=== PATIENT | male | born 1945 | race Caucasian/White ===

== ENCOUNTER 2016-12-15 11:13 | Inpatient (IN) | payer MEDICARE, MEDICAID ==
--- NOTE | 2016-12-15 11:54 | RAD ---
SINGLE VIEW OF THE CHEST: COMPARISON: 04/07/2015 HISTORY: Right lower quadrant abdominal pain. FINDINGS: Single view of the chest shows a normal size cardiomediastinal silhouette with atherosclerotic calci fications in the aorta. There is no evidence of consolidation, mass, or pleural effusion. IMPRESSION: No evidence of acute cardiopulmonary disease. POS: [facility]
[2016-12-15 11:55] LABS: #Eosinphils 0.1 thou/uL (0.0-0.7); #Lymphocytes 0.3 thou/uL (1.20-3.40); %Basophils 0.2 % (0.0-1.0); %Eosinophils 1.4 % (0.0-10.0); %Lymphocytes 4.8 % (21.0-51.0); %Monocytes 0.6 % (0.0-10.0); Hematocrit 34.1 % (42.0-52.0); Mean Platelet Volume 8.2 fL (7.4-10.4); White Blood Cell (WBC) Count 6.5 thou/uL (4.8-10.8)
[2016-12-15] MEDS ORDERED: Acetaminophen 500 MG TAB ONE (12:05)
[2016-12-15 12:18] LABS: ALT (SGPT) 139 U/L (8-55); AST (SGOT) 145 U/L (5-34); Alkaline Phosphatase 380 U/L (40-150); Anion Gap 15 mmol/L (10-20); BUN (Urea Nitrogen) 29 mg/dL (8.4-25.7); Bilirubin, Total 0.8 mg/dL (0.2-1.2); Calc. Creatinine Clearance 0 mL/min (70-130); Calcium 8.1 mg/dL (7.8-10.44); Carbon Dioxide 22 mmol/L (23-31); Chloride 106 mmol/L (98-107); Estimated GFR-MDRD 30; Globulin 3.4 g/dL (2.4-3.5); Protein, Total 6.2 g/dL (5.8-8.1)
[2016-12-15 12:18] LABS: Lactic Acid - Sepsis 5.6 mmol/L (0.5-2.2)
--- NOTE | 2016-12-15 13:18 | ULT ---
RIGHT UPPER QUADRANT ULTRASOUND 12/15/2016 HISTORY: Right-sided abdominal pain and fever. FINDINGS: There is heterogeneity involving a portion of the right hepatic lobe. While discrete border pulmona ry margins are not seen to suggest mass, further evaluation with CT scan of the abdomen is recommend ed. There is mild gallbladder wall thickening with the gallbladder wall measuring 0.4 cm. No gallbladde r calculi are seen, and there is no pericholecystic fluid identified. The common duct is normal in caliber and measures 0.4 cm. The pancreas is obscured by shadowing from bowel gas. The right kidney measures 12.8 cm in length. There is a near-echogenic focus seen centrally within the renal sinus fat which may be attributable to vascular calcification which was noted on CT abdome n on 07/15/2015, although a renal calculus cannot be entirely excluded. There is no hydronephrosis s een and the right kidney otherwise has a normal sonographic appearance. IMPRESSION: 1. Area of heterogeneity in the right hepatic lobe. Further evaluation with a CT scan of abdomen is recommended with 3-phase imaging. 2. Mild gallbladder wall thickening, but there is no gallbladder calculus or pericholecystic fluid i dentified. This is overall nonspecific, and gallbladder wall thickening can be seen with cholecysti tis in the correct clinical scenario, liver disease, hypoproteinemia, versus other etiologies. 3. Trace amount of free fluid adjacent to the liver. 4. Echogenic focus in the region of the renal sinus fat which is probably related to vascular calcif ication which was seen on prior CT abdomen on 07/15/2015. POS: [facility]
[2016-12-15] MEDS ORDERED: Piperacillin/Tazobactam 4.5 GM VIAL ONE (13:57)
[2016-12-15] MEDS ORDERED: Sodium Chloride 0.9% 100 ML ONE (13:58)
[2016-12-15 14:55] LABS: Bilirubin Negative (Negative); Blood, Urine Moderate (Negative); Glucose, Urine (Dipstick) Negative (Negative); Ketone, Urine Negative (Negative); Nitrite Positive (Negative); Protein, Urine (Dipstick) 30 mg/dL (Neg-Trace); Urobilinogen 0.2 mg/dL (0.2-1.0)
[2016-12-15 15:06] LABS: Bacteria/HPF 3+ HPF (None Seen); Squamous Epithelial 0-3 HPF (0-3)
[2016-12-15 15:07] LABS: Hyaline Casts/LPF 0-3 HYALINE CAST LPF (0-3 Hyaline)
--- NOTE | 2016-12-15 15:53 | HP ---
PRIMARY CARE PHYSICIAN: Myriam Walker D.O. REASON FOR ADMISSION: Sent from [facility] for right-sided abdominal pain, fever, an d admitted for sepsis. HISTORY OF PRESENT ILLNESS: A 71-year-old male who is currently appears confused. He is arousable, but he is not able to provide any coherent and consistent history. He only reports that he has rig ht-sided abdominal pain. He is also having back pain. In the emergency room, he has fever of 101 a nd he is tachycardic and his blood pressure is relatively low. His routine blood tests showed abnor mal LFT, lactic acidosis, and mild renal insufficiency. In the emergency room, the abdominal ultrasound was done, which showed gallbladder wall thickening w ithout any gallstones. His chest x-ray was unremarkable. By the time of dictation, we are waiting for urinalysis. As per report from intermediate, abdominal pain is going on since this morning. He was given Tyleno l at intermediate around 9:00 a.m. He was hypertensive at intermediate and his last bowel movement was last night. At this point, we are admitting this patient for sepsis. REVIEW OF SYSTEMS: All review of systems tried to review with the patient, but unable to review bec ause of altered mental status. The patient has underlying dementia and that is why review of system s is not reliable, only patient is telling me that he has right-sided abdominal pain and back pain. PAST MEDICAL HISTORY: Alzheimer's dementia, hypertension, coronary artery disease, diabetes type 2, hypertension, dyslipidemia, peripheral vascular disease, osteoarthritis, carotid stenosis, benign e nlargement of prostate, gastroesophageal reflux disease, chronic kidney disease stage 3, history of Buerger's disease, recurrent urinary tract infection. PAST SURGICAL HISTORY: Cardiac catheterization with stent placement, CABG, carotid endarterectomy. PAST PSYCHIATRIC HISTORY: Anxiety, depression, and dementia. ALLERGIES: No known drug allergies. SOCIAL HISTORY: Patient is . He lives in [facility] in [place]. He does not have a ny tobacco, alcohol or illicit drug abuse history. FAMILY HISTORY: Father by age of 52 from coronary artery disease. Mother in her old age. He has no brothers and sisters as per report. CURRENT HOME MEDICATIONS: Patient has intermediate paper with him and based on that, patient is on following medication: Aricept 710 mg p.o. at bedtime, aspirin 325 mg p.o. daily, Claritin 10 mg p.o . daily, clonidine 0.2 mg transdermal patch every week, ferrous sulfate 325 mg twice daily, Flomax 0 .4 mg p.o. daily, hydralazine 25 mg twice daily, multivitamin 1 tablet p.o. daily, Namenda XR 14 mg p.o. daily, Imodium p.r.n., milk of magnesia p.r.n. basis and Zoloft 50 mg p.o. daily. EMERGENCY ROOM COURSE: Patient is receiving IV fluid, vancomycin, Zosyn and Tylenol. PHYSICAL EXAMINATION: VITAL SIGNS: Currently, blood pressure 110/52, pulse 102, respiratory rate 22, temperature 101.0, s aturation 100% on room air, weight 59 kilograms. GENERAL: The patient is currently awake, arousable, and confused up to his baseline. HEENT: Normocephalic, atraumatic. Eyes: Pupils round, reactive to light. Extraocular muscles int act. ENT: Nasal congestion noted. Oropharynx within normal limits. Moist mucous membranes. No pharyng eal erythema. No exudate. NECK: Supple. No JVD. No thyromegaly. No carotid bruit. No meningeal signs of irritation. LUNGS: Clear to auscultation without any rhonchi or rales. CARDIAC: S1, S2 regular, tachycardia, no murmur elicited, no gallop, no rub. ABDOMEN: Patient has right-sided predominantly upper abdominal discomfort on deep palpation. No Mu rphy sign elicited. Right-sided flank discomfort also noted. No peritoneal signs. No guarding. N o rigidity. No rebound. BACK EXAMINATION: Unremarkable. Unable to elicit CVA tenderness. EXTREMITIES: Upper extremity passive movement of all joints are normal. Lower extremities: No feliberto ma. Good peripheral pulsation. SKIN: No skin rash. HEMATOLOGICAL: No lymphadenopathy. PSYCHIATRIC: Flat affect. NEUROLOGIC: Grossly nonfocal examination. Speech normal. The patient is moving all four limbs. N o focal neurological deficit noted. SIGNIFICANT LABS AND IMAGINGS: Ultrasound right upper quadrant showing right hepatic lobe heterogen icity, gallbladder wall thickening without any gallstone. Chest x-ray based on my review, no acute cardiopulmonary process. Influenza A and B negative. BMP shows sodium 139, potassium 4.4, chloride 106, carbon dioxide 22, anion gap 15, BUN 29, creatinine 2.15, glucose 108, calcium 8.1. LFTs: To kvng protein 6.2, albumin 2.8, AST 145, ALT 139, alkaline phosphatase 380, lactic acid 5.6. CBC: WB C 6.5, hemoglobin 11.2, platelets 187 with left shift. Urinalysis and urine culture ordered. Blood culture done. ASSESSMENT AND PLAN: 1. Sepsis severe with acute organ dysfunction with encephalopathy and worsening renal insufficiency and abnormal LFT. Source of infection is most likely urinary tract versus gallbladder. He has abn ormal LFT. He has gallbladder wall thickening and abdominal discomfort in the right upper quadrant. He does not have any gallstones, so acalculous cholecystitis is a possibility. We will check urin alysis and urine culture and we will do CT stone protocol to rule out any urinary process. At this point, the patient will be given broad-spectrum antibiotic therapy with vancomycin and Zosyn. We wi ll continue with gentle IV fluid and we will follow up on culture result and change antibiotic thera py based on culture result. 2. Acute acalculous cholecystitis based on clinical examination. We are suspecting acalculous chol ecystitis. We will confirm this possibility with HIDA scan if needed. We will repeat LFT tomorrow. At this point, we will conservatively treat with broad-spectrum antibiotic therapy. 3. Urinary tract infection suspected. We will send urinalysis and urine culture. The patient is a lready on broad spectrum antibiotic therapy and we are doing CT stone protocol to rule out any other process. 4. Lactic acidosis, likely due to sepsis. We will repeat lactic acid tomorrow again. 5. Encephalopathy. The patient is away from normal baseline status likely due to underlying infect ious process and mild dehydration. We will give him gentle IV fluid. We will treat with an underly ing infection. He does not have any focal neurological deficit. We will monitor his clinical statu s. 6. Alzheimer's dementia. We will continue patient's home medication with Namenda XR 40 mg, and Pancho cept 10 mg p.o. at bedtime. 7. Hypertension. We will watch for his hemodynamics while in hospital. If blood pressure is low, then we will discontinue clonidine patch and will hold on antihypertensive medication. If blood pre ssure permits, then we will resume hydralazine 25 mg twice daily. 8. Benign enlargement of prostate. We will continue Flomax 0.4 mg p.o. daily. 9. Anxiety and depression. We will continue Zoloft 50 mg p.o. daily. 10. History of coronary artery disease, peripheral vascular disease, carotid stenosis, and a histor y of systolic dysfunction. All problems are currently stable. We will continue aspirin 325 mg p.o. daily. We will watch for any fluid overload. 11. Deep venous thrombosis prophylaxis, heparin 5000 units subcu twice daily. 12. Gastrointestinal prophylaxis, Protonix 40 mg IV daily. 13. Code status: The patient has out of hospital DNR paper work at intermediate. We will continue DNR status while in hospital. Disposition plan based on clinical course. We are expecting patient's stay in hospital more than 2 midnights. Plan of care discussed with the patient.
[2016-12-15 16:09] LABS: Anion Gap 13 mmol/L (-14-95); T. Carbon Dioxide 22.6 mmol/L (1.0-85.0); pH (Venous) 7.347 (7.35-7.45); vO2 Saturation-calc 48.8 % (0.0-100.0)
[2016-12-15] MEDS ORDERED: hydrALAZINE 20 MG/ML VIAL SLOW IVP PRN (16:56)
[2016-12-15] MEDS ORDERED: Mag-Al 1200 mg/1200 mg/30 ML UDCUP PO PRN (16:56)
[2016-12-15] MEDS ORDERED: Ondansetron HCl/PF 4 MG/2 ML Vial IVP PRN (16:56)
[2016-12-15] MEDS ORDERED: Loratadine 10 MG TAB PO PRN (16:56)
[2016-12-15] MEDS ORDERED: Sodium Chloride 0.65% Nasal 44 ML BOT EA NARE PRN (16:56)
[2016-12-15] MEDS ORDERED: Artificial Tears 18 DROP/0.9 ML EA EYE PRN (16:56)
[2016-12-15] MEDS ORDERED: Nitroglycerin 0.4 MG TAB (25 Tab Bottle) SL PRN (16:56)
[2016-12-15] MEDS ORDERED: Acetaminophen 325 MG TAB PO PRN (16:56)
[2016-12-15] MEDS ORDERED: Diabetic Tussin 200 MG/10 ML UDCUP PO PRN (16:56)
[2016-12-15] MEDS ORDERED: HumaLOG 300 UNITS/3 ML VIAL SC PRN ×2 (16:56)
[2016-12-15] MEDS ORDERED: Eucerin (Mineral Oil/Petrolatum,White) 30 gm Jar TOP PRN (16:56)
[2016-12-15] MEDS ORDERED: HYDROcodone/Acetaminophen 5/325 mg Tablet PO PRN (16:56)
[2016-12-15] MEDS ORDERED: Senokot 8.6 MG TAB PO PRN (16:56)
[2016-12-15] MEDS ORDERED: Loperamide HCl 2 MG CAP PO PRN (16:56)
[2016-12-15] MEDS ORDERED: Milk Of Magnesia 30 ML UDCUP PO PRN (16:56)
[2016-12-15] MEDS ORDERED: Ondansetron ODT 4 MG TAB PO PRN (16:56)
[2016-12-15] MEDS ORDERED: Dextrose 5% in Water 1,000 ML IV PRN (16:56)
[2016-12-15] MEDS ORDERED: Dextrose 50% Abboject 50 ML SYRINGE SLOW IVP PRN (16:56)
[2016-12-15] MEDS: Sodium Chloride 0.9% 1,000 ML IV SCH (17:32)
[2016-12-15] MEDS: Piperacillin/Tazobactam 3.375 GM in Sodium Chloride 0.9% 100 ML IVPB SCH (20:00)
[2016-12-15] MEDS: Heparin 5,000 UNITS/ML VIAL SC SCH (20:00)
[2016-12-15] MEDS ORDERED: Donepezil HCl 10 MG TAB PO SCH (21:00)
--- NOTE | 2016-12-15 22:37 | CT ---
CT ABDOMEN NONCONTRAST CT PELVIS NONCONTRAST: (urolithiasis protocol) DATE: 12/15/16 TIME: 9:48 p.m. HISTORY: 71-year-old male with sepsis. Suspected UTI. Low GFR: renal failure. COMPARISON: 07/15/15. TECHNIQUE: IV injection of iodinated contrast media: none Oral contrast media: none FINDINGS: Other than for urolithiasis, the lack of IV and oral contrast limits the evaluation. There is a new finding of tiny bilateral pleural effusions. There is interval worsening of the diffu se mural thickening of the distal esophagus. There is another new findings of a very large number of hypodense lesions throughout the left and right lobes of the liver, No splenomegaly. Again noted is the very small size of the left kidney. The right kidney is more normal in size. The right renal co llecting system is now mildly dilated, a new finding since the previous CT. There is also mild dilat ion of the right proximal ureter, down to the L4 level, where there is a new 5 x 3 x 6 mm calculus. No right renal calculi are visualized. There are atherosclerotic calcifications of branches of the r ight renal artery. There is very severe atherosclerotic calcification of the proximal portion of the right renal artery, superior mesenteric artery, celiac artery, splenic artery, and hepatic artery, a well as the nonaneurysmal abdominal aorta, common iliac arteries, external iliac arteries, and int ernal iliac arteries. No splenomegaly. Atrophic pancreas. John catheter within the urinary bladder. Diffuse, moderate mural thickening of the urinary bladder, and numerous tiny bladder diverticula. S tool distending the rectum as previously. Mild mural thickening of the rectum. No signs of acute col onic diverticulitis. New finding of fat stranding representing edema throughout the right retroperitoneum, especially in the right perirenal space, tracking down the right paracolic gutter into the right pelvic inlet. Thi s is presumably arising from the right kidney. The appendix is normal. No small bowel dilation. No p neumoperitoneum. There is another new finding of mild dilation of the left extrarenal pelvis, new si nce the previous CT. The distal-most portion of the left ureter is mildly enlarged, as was the case previously. IMPRESSION: 1. Positive for right obstructive uropathy: a 5 x 6 x 3 mm calculus lodged in the right proxima l to mid ureter, causing mild right hydronephrosis. 2. Moderate amount of edema throughout the right retroperitoneum. This is presumably due to the right obstructive uropathy. 3. A large number of lesions throughout the liver, highly suspicious for hepatic metastatic dis ease. 4. Interval worsening of mural thickening of the distal esophagus. This could represent esophag eal cancer or severe esophagitis. 5. Atrophic or hypoplastic left kidney. 6. Mild left hydronephrosis, 7. severe mural thickening of the urinary bladder. KATERIN Robb POS: [facility]
[2016-12-16] MEDS: Piperacillin/Tazobactam 3.375 GM in Sodium Chloride 0.9% 100 ML IVPB SCH ×2 (03:00→08:20)
[2016-12-16 06:08] LABS: ALT (SGPT) 403 U/L (8-55); AST (SGOT) 672 U/L (5-34); Alkaline Phosphatase 228 U/L (40-150); Anion Gap 13 mmol/L (10-20); BUN (Urea Nitrogen) 35 mg/dL (8.4-25.7); Bilirubin, Total 1.4 mg/dL (0.2-1.2); Calc. Creatinine Clearance 19 mL/min (70-130); Calcium 6.9 mg/dL (7.8-10.44); Carbon Dioxide 17 mmol/L (23-31); Chloride 113 mmol/L (98-107); Estimated GFR-MDRD 21; Globulin 2.4 g/dL (2.4-3.5); Protein, Total 4.3 g/dL (5.8-8.1)
[2016-12-16 06:11] LABS: Band 14 % (5-11); Hematocrit 26.6 % (42.0-52.0); Mean Platelet Volume 8.9 fL (7.4-10.4); Neutrophil 77 % (42-75); Red Blood Cell (RBC) Count 2.78 mill/uL (4.70-6.10); White Blood Cell (WBC) Count 15.2 thou/uL (4.8-10.8)
[2016-12-16 07:26] LABS: Hematocrit 27.3 % (42.0-52.0); Mean Platelet Volume 8.7 fL (7.4-10.4); Red Blood Cell (RBC) Count 2.87 mill/uL (4.70-6.10); White Blood Cell (WBC) Count 17.4 thou/uL (4.8-10.8)
[2016-12-16 07:44] LABS: Anion Gap 14 mmol/L (10-20); BUN (Urea Nitrogen) 37 mg/dL (8.4-25.7); Calc. Creatinine Clearance 18 mL/min (70-130); Calcium 7.1 mg/dL (7.8-10.44); Carbon Dioxide 18 mmol/L (23-31); Chloride 112 mmol/L (98-107); Estimated GFR-MDRD 21
[2016-12-16 07:56] LABS: Band 15 % (5-11); Metamyelocyte 5 % (0-0); Myelocyte 1 % (0-0); Neutrophil 74 % (42-75); Nucleated RBC 1 % (0)
[2016-12-16] MEDS ORDERED: Sodium Chloride 0.9% 1,000 ML IV SCH (08:00)
[2016-12-16] MEDS: Ferrous Sulfate 325 MG TAB PO SCH (08:18)
[2016-12-16] MEDS: Multivitamin W/ Minerals 1 TAB PO SCH (08:20)
[2016-12-16] MEDS: Tamsulosin HCl 0.4 MG CAP PO SCH (08:20)
[2016-12-16] MEDS: Saccharomyces boulardii 250 MG CAP PO SCH (08:20)
[2016-12-16] MEDS: Heparin 5,000 UNITS/ML VIAL SC SCH ×2 (08:20→19:59)
[2016-12-16] MEDS: Sodium Chloride 0.9% 1,000 ML IV SCH (08:22)
[2016-12-16] MEDS ORDERED: Dextrose 50% Abboject 50 ML SYRINGE ONE (09:38)
[2016-12-16] MEDS ORDERED: Fentanyl 100 MCG/2 ML VIAL ONE (10:25)
[2016-12-16] MEDS ORDERED: Ondansetron HCl/PF 4 MG/2 ML Vial ONE (10:41)
[2016-12-16] MEDS ORDERED: Lidocaine 2% PF 10 ML AMP (For Epidural Use) ONE (10:41)
[2016-12-16] MEDS ORDERED: PHENYLEPHRINE-NS 100 MCG/ML 10 ML SYRINGE ONE (10:41)
[2016-12-16] MEDS ORDERED: Propofol 1,000 MG/100 ML VIAL IV ONE (10:41)
[2016-12-16] MEDS ORDERED: ePHEDrine/0.9% NaCl/PF SYRINGE 50 mg/10 ml ONE (10:41)
--- NOTE | 2016-12-16 11:54 | PDOC.PN ---
- Subjective Encounter Start Date: 12/16/16 Encounter Start Time: 07:00 Subjective: is awake, knows he is in the hospital, doesn't recall where he normally rosa -: -es, no sob, has ruq pain. Feels sick - Objective Resuscitation Status: Resuscitation Status DNR:Do Not Resuscitate MAR Reviewed: Yes Vital Signs & Weight: Vital Signs (12 hours) Temp Pulse Resp BP Pulse Ox 12/16/16 08:00 98.1 F 69 16 99 12/16/16 07:12 98.1 F 69 16 102/52 L 99 12/16/16 04:00 98.6 F 70 16 96/44 L 98 12/16/16 00:00 99.1 F 75 20 97/60 96 Weight Weight 130 lb 1.164 oz I&O: 12/15/16 12/16/16 12/17/16 06:59 06:59 06:59 Intake Total 1140 Output Total 350 Balance 790 Result Diagrams: 12/16/16 06:51 12/16/16 06:51 Additional Labs: Accuchecks 12/16/16 12/16/16 12/16/16 11:30 10:24 09:31 POC Glucose 116 H 99 67 L 12/16/16 12/16/16 12/15/16 05:11 00:25 20:37 POC Glucose 88 95 135 H 12/15/16 19:51 POC Glucose 57 L* Phys Exam - Physical Examination HEENT: PERRLA dry mucosa Neck: no JVD, supple Respiratory: no wheezing, no rales Cardiovascular: RRR, no significant murmur Gastrointestinal: soft, positive bowel sounds ruq tenderness++, no rigidity or guarding Musculoskeletal: no edema, pulses present Neurological: non-focal, moves all 4 limbs Dx/Plan (1) Severe sepsis with acute organ dysfunction Code(s): A41.9 - SEPSIS, UNSPECIFIED ORGANISM; R65.20 - SEVERE SEPSIS WITHOUT SEPTIC SHOCK Status: Acute (2) Pyelonephritis Code(s): N12 - TUBULO-INTERSTITIAL NEPHRITIS, NOT SPCF ACUTE OR CHRONIC Status: Acute (3) Hydronephrosis, right Code(s): N13.30 - UNSPECIFIED HYDRONEPHROSIS Status: Acute Comment: sec to ureteric calculus (4) multiple metastases in liver Status: Acute (5) DENISE (acute kidney injury) Code(s): N17.9 - ACUTE KIDNEY FAILURE, UNSPECIFIED Status: Acute (6) Metabolic acidosis Code(s): E87.2 - ACIDOSIS Status: Acute (7) Anemia Code(s): D64.9 - ANEMIA, UNSPECIFIED Status: Chronic Qualifiers: Anemia type: unspecified type Qualified Code(s): D64.9 - Anemia, unspecified (8) Bacteremia Code(s): R78.81 - BACTEREMIA Status: Acute Comment: proteus (9) Dementia Code(s): F03.90 - UNSPECIFIED DEMENTIA WITHOUT BEHAVIORAL DISTURBANCE Status: Chronic Qualifiers: Dementia type: unspecified type Dementia behavioral disturbance: without behavioral disturbance Qualified Code(s): F03.90 - Unspecified dementia without behavioral disturbance - Plan d/w son over phone who lives in [place], gave an update, was not really int -: -erested much in knowing what's going on, he was upset and busy because of -: personal issues at home early this morning. He agrees to do whatever it iain -: -es to help his father. He is the only child per him. -: d/w , will take him for cystoscopy and likely stent to relieve hy * . -dronephrosis with pyelonephritis, bacteremia and sepsis. Has multiple mets in liver with CT finding of lower esophageal thickening, GI consult. Likely has to wait for his sepsis to get better for possible EGD/biopsy. Is on vanc and meropenem, generous IV hydration with D5NS, watch for hypoglycemia. Poor prognosis in view of multiple mets and his current physical condition, palliative care consult. Will try to reach out to son again later on today. Review of Systems - Medications/Allergies Allergies/Adverse Reactions: Allergies Allergy/AdvReac Type Severity Reaction Status Date / Time No Known Allergies Allergy Verified 08/04/15 14:53 Medications: Current Medications Acetaminophen (Tylenol) 650 mg PO Q4H PRN PRN Reason: Headache/Fever or Pain Last Admin: 12/15/16 20:03 Dose: 650 mg Al Hydroxide/Mg Hydroxide (Maalox) 30 ml PO Q6H PRN PRN Reason: Heartburn or Indigestion Albuterol/Ipratropium (Duoneb) 3 ml NEB [id number] PRN PRN Reason: SOB &/or Wheezing Artificial Tears (Tears Naturale) 0 drop EA EYE PRN PRN PRN Reason: Dry Eyes Dextrose/Water (Dextrose 50%) 25 gm SLOW IVP PRN PRN PRN Reason: Hypoglycemia Last Admin: 12/15/16 19:57 Dose: 25 gm Ferrous Sulfate (Feosol) 325 mg PO QAM[facility] Last Admin: 12/16/16 08:18 Dose: Not Given Glucagon (Glucagon) 1 mg IM PRN PRN PRN Reason: Hypoglycemia Guaifenesin (Robitussin Sf) 200 mg PO Q4H PRN PRN Reason: Cough Heparin Sodium (Porcine) (Heparin) 5,000 units SC BID [facility] Last Admin: 12/16/16 08:20 Dose: Not Given Hydralazine HCl (Apresoline) 10 mg SLOW IVP Q4H PRN PRN Reason: Systolic BP > 180 Dextrose/Water (D5w) 1,000 mls @ 0 mls/hr IV .Q0M PRN; As Directed PRN Reason: Hypoglycemia Vancomycin HCl 500 mg/ Sodium (Chloride) 100 mls @ 100 mls/hr IVPB 1500 AZEEM Dextrose/Sodium Chloride (D5 0.9% Ns) 1,000 mls @ 125 mls/hr IV .Q8H AZEEM Meropenem 500 mg/ Syringe 10 mls @ 0 mls/hr IVPB Q8HR [facility] Insulin Human Lispro (Humalog) 0 units SC .MILD SLIDING SCALE PRN PRN Reason: Mild Correctional Scale Iron/Minerals/Multivitamins (Theragran M) 1 tab PO DAILY [facility] Last Admin: 12/16/16 08:20 Dose: Not Given Loperamide HCl (Imodium) 2 mg PO PRN PRN PRN Reason: Diarrhea/Loose Stools Loratadine (Claritin) 10 mg PO DAILYPRN PRN PRN Reason: Sinus Symptoms Magnesium Hydroxide (Milk Of Magnesium) 30 ml PO DAILYPRN PRN PRN Reason: Constipation Mineral Oil/White Petrolatum (Eucerin Cream) 0 gm TOP BIDPRN PRN PRN Reason: Dry Skin Miscellaneous Medication (Pharmacy To Dose) 1 each IVPB PRN PRN PRN Reason: Pharmacy to dose Nitroglycerin (Nitrostat) 0.4 mg SL Q5MIN PRN PRN Reason: Chest Pain Ondansetron HCl (Zofran Odt) 4 mg PO Q6H PRN PRN Reason: Nausea/Vomiting Ondansetron HCl (Zofran) 4 mg IVP Q6H PRN PRN Reason: Nausea/Vomiting Saccharomyces Boulardii (Florastor) 250 mg PO DAILY [facility] Last Admin: 12/16/16 08:20 Dose: Not Given Senna (Senokot) 2 tab PO HSPRN PRN PRN Reason: Constipation Sodium Chloride ([place] Nasal Kelly 0.65%) 0 ml EA NARE QIDPRN PRN PRN Reason: Nasal Congestion Tamsulosin HCl (Flomax) 0.4 mg PO DAILY [facility] Last Admin: 12/16/16 08:20 Dose: Not Given
--- NOTE | 2016-12-16 12:17 | RAD ---
RETROGRADE IVP: Date: 12/16/16 COMPARISON: CT abdomen/pelvis dated 12/15/16. HISTORY: Right ureteral calcification. FINDINGS/IMPRESSION: A single limited intraoperative fluoroscopic view during a retrograde IVP was submitted for interpre tation. There is a stent in the right renal collecting system. The previously seen calcification dominique t was present on CT is not visualized on this exam. POS: [facility]
[2016-12-16] MEDS: Dextrose 5 % And 0.9 % NaCl 1,000 ML IV SCH ×2 (12:24→20:11)
[2016-12-16] MEDS ORDERED: Merrem (PEDI) 500 MG in Syringe 0 ML IVPB SCH (14:00)
[2016-12-16] MEDS: Vancomycin HCl 500 MG in Sodium Chloride 0.9% 100 ML IVPB SCH (14:04)
[2016-12-16] MEDS: Meropenem 500 MG in Sodium Chloride 0.9% 100 ML IVPB SCH ×2 (14:28→20:11)
--- NOTE | 2016-12-16 15:38 | CON ---
DATE OF CONSULTATION: 12/16/2016 CONSULTING PHYSICIAN: Kimberly Erickson. CONSULTED PHYSICIAN: Giuseppe Zuniga M.D. with Urology. REASON FOR CONSULTATION: Sepsis with pyelonephritis with obstructing ureteral stone. HISTORY OF PRESENT ILLNESS: Mr. Lagunas is a 71-year-old white male who [facility] with confusion and altered mental status. He stated that he was having some right-sided abdominal pain and was brought into the ER with a fever of 101 with tachycardia and relatively low blood pressure. He had abnormal LFTs with lactic acidosis and renal insufficiency. He was started on antibiotics and underwent a CT scan yesterday which demonstrated that he had a distal 6 mm ureteral stone in a solitary functioning right kidney with significant renal atrophy on the left side. There was mild right hydronephrosis with perirenal and retroperitoneal edema. Thus far, the patient' s blood cultures worked up in the ER are growing gram negative rods with 1 speciating out to Proteus species, no other renal calculi were seen. It is not clear why Urology was not consulted yesterday at the time of the findings of the patient having ureteral stone with fevers, but I have been notified today about the situation. Upon my arrival and discussion with the patient, he does have fairly significant altered mental status and dementia. I am not able to obtain a proper history from him. The majority of the history is obtained from the consulting physician, the nursing staff and from the patient's medical records as the patient does not have any family at bedside and is not really answering questions appropriately, appear to understand what is going on. His son has apparently been contacted, but apparently he is not interested in his care and was bothered by the hospital contacting about his father's condition. Apparently, the patient's was more amenable to a discussion, but I have not been able to get in touch with her yet. PAST MEDICAL HISTORY: 1. Alzheimer's dementia. 2. Hypertension. 3. Coronary artery disease. 4. Diabetes type 2. 5. Hypertension. 6. Dyslipidemia. 7. Peripheral vascular disease. 8. Osteoarthritis. 9. Carotid artery stenosis. 10. BPH. 11. GERD. 12. Chronic kidney disease stage 3. 13. Buerger's disease 14. Recurrent urinary tract infections. PAST SURGICAL HISTORY: 1. Cardiac catheterization with cardiac stents. 2. CABG. 3. Carotid endarterectomy. ALLERGIES: None. HOME MEDICATIONS: 1. Aricept. 2. Aspirin. 3. Claritin. 4. Clonidine. 5. Ferrous sulfate. 6. Flomax. 7. Hydralazine. 8. Multivitamin. 9. Namenda. 10. Imodium. 11. Milk of Magnesia. 12. Zoloft. FAMILY HISTORY: Significant for coronary artery disease, but no noted history of nephrolithiasis. Patient again is not answering questions appropriately. SOCIAL HISTORY: Patient is apparently , but still has contact with his . He lives in [facility] in [place]. There is no reported history of tobacco, alcohol or illicit drug abuse history per patient records. REVIEW OF SYSTEMS: A 12 point review of systems cannot be obtained secondary to patient not answering questions appropriately. PHYSICAL EXAMINATION: VITAL SIGNS: Temperature 98.1, pulse 69, respirations 16, blood pressure 102/52 , saturation is 99% on room air. GENERAL: Elderly, thin male, appears older than stated age. Does not appear to be in any acute distress at the moment. HEENT: Normocephalic, atraumatic. Sclerae are nonicteric. Pupils are symmetric and round. Extraocular movements intact. Moist mucous membranes. Trachea midline. CARDIOVASCULAR: Regular rate and rhythm. Normal S1 and S2. Symmetric pulses. CHEST: Clear anteriorly. Symmetric expansion of lungs, nonlabored breathing. ABDOMEN: Slightly tender right maria isabel-abdomen. No tenderness on the left. Tenderness in the right upper quadrant and right lower quadrant, nondistended, positive bowel sounds, soft. No rebound or guarding tenderness. EXTREMITIES: No joint erythema or joint deformities noted. The patient does not follow commands to move extremities, but upon shaking his right hand it does seem that he does have some voluntary movement there. SKIN: Warm, dry. No rashes, poor turgor. LYMPH: No obvious lymphadenopathy in the cervical, supraclavicular, or inguinal regions. EXTREMITIES: No clubbing, cyanosis or edema. NEUROLOGIC: Grossly nonfocal, although the patient is not following commands appropriately. PSYCHIATRIC: Alert and oriented x1. LABORATORY DATA AND X-RAY FINDINGS: On laboratory evaluation, a full set of labs are in the [facility] system, which I have reviewed. Of note, the patient's current creatinine is 2.97, which is increased from 2.94 yesterday. Glucose is 62, calcium 7.1 with lactic acid of 2.6. Patient has significant elevation in his LFTs with AST of 672, ALT of 403, total bilirubin is also elevated at 1.4. Urinalysis demonstrates moderate blood, positive nitrites, moderate leukocyte esterase, 3+ bacteria, 11-20 white cells, 7-10 red cells. Microbiology: Urine culture is still currently pending. Blood cultures are positive with gram negative rods in the left arm and Proteus species in the right arm. Both are still proceeding. Sensitivities have not yet been reported. On imaging, CT stone protocol done yesterday demonstrates positive for right obstructive uropathy secondary to a 5 x 6 mm calculus lodged in the right proximal to mid ureter causing mild right hydronephrosis. There is moderate edema throughout the right retroperitoneum. A large number of lesions throughout the liver, highly suspicious for hepatic metastatic disease, worsening thickening of the distal esophagus which could represent severe esophagitis versus esophageal cancer, atrophic or hypoplastic left kidney, mild left hydronephrosis and severe mural thickening of the urinary bladder. ASSESSMENT AND PLAN: A 71-year-old white male with a solitary functioning right kidney which is likely infected as well as partially obstructed secondary to a right ureteral stone. The patient is suffering an acute kidney injury with urosepsis. He currently is stable, but I still would recommend emergent and prompt treatment by drainage of his right kidney. Unfortunately, his son does not appear to be involved in his care and did not want to discuss his father's care upon the hospitalist team attempting to talk to him. seems more amenable but apparently does not have any bankruptcy legal assistant over the patient given that they are . Given that this is relatively urgent life and issue as the patient will likely succumb to his illness if he is not stented appropriately and the final decision for hospice or palliative care cannot be made with the patient given his severe mental status changes. I would recommend at this time going forward with a cystoscopy with ureteral stent which is minimally morbid on an emergent basis due to the patient's life threatening illness at which time he should improve from the standpoint of his kidney function and infection. At that point, further workup of his hepatic metastatic disease versus possible esophageal cancer and definitive treatment of the stone can be discussed on a more elective basis with any family members, which can be contacted regarding his care. I have attempted to try to explain the surgery to the patient, although it is dubious whether he really understands what is going or what procedure would need to do to him. When asked directly if it would be okay to do a small endoscopic procedure, he nodded his head yes. As such, we will go ahead and make plans for a cystoscopy with right ureteral stent placement with continuation of antibiotics. If the patient does worsen after the stenting which sometimes can happen after urinary manipulation, he may need to be placed in the ICU for monitoring until he is stabilized. SUMMARY OF RECOMMENDATIONS: 1. N.p.o. 2. IV fluids. 3. Continue IV antibiotics. 4. To OR emergently for cystoscopy and right ureteral stent placement. I have already spoken with the OR staff and they are bringing in a second team as there is no availability in the OR at the current time. 5. SCDs bilaterally. 6. We will continue to monitor the patient's care to discuss definitive management of his stone disease at a later date pending on being able to obtain consent from any family members, which are still involved in his care. [Addendum]: pt's son was able to be reached by staff genetic counselor shortly after my visit and he gave consent for the above procedure which is in the chart. Pt's son does wish for all treatment at this time and has not yet agreed to hospice. JACKELYN
--- NOTE | 2016-12-16 17:28 | OP ---
DATE OF SURGERY: 12/16/2016 SERVICE: Urology. SURGEON: Giuseppe Zuniga M.D. PREOPERATIVE DIAGNOSIS: Right ureteral stone. POSTOPERATIVE DIAGNOSIS: Right ureteral stone. PROCEDURE PERFORMED: Cystoscopy with right ureteral stent placement. INDICATIONS FOR PROCEDURE: Mr. 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 Apparently, consent was able to be obtained from the son for cystoscopy and right ureteral stent placement and he is being taken down for this on a relatively emergent basis. DESCRIPTION OF PROCEDURE: After identification of armband verification and consent, the patient was brought back to the operating room where he underwent general anesthesia with an LMA. He was place d in dorsal lithotomy position and prepped and draped in usual sterile fashion. After appropriate t imeout, a lubricated 22-Sinhala rigid cystoscope was introduced per urethra into the bladder. The bl adder had signs of grade II trabeculation with multiple cellules throughout the bladder. Both urete rs were in their orthotopic location, but there was significant atrophy of the left ureter with rasheed ncy of the right ureter. Right ureter was cannulated with a 0.035 sensor wire up to the level of th e renal pelvis. The stone was radiolucent and could not be identified. A 6 x 26 double-J stent was advanced over the sensor wire to the level of the renal pelvis. The wire was then removed leaving a good curl in the renal pelvis and good curl in the bladder. The bladder was then emptied and the cystoscope removed. The patient was then awakened and taken to PACU for recovery in stable conditio n. Of note, the patient did have a John catheter replaced at the end of the procedure. COMPLICATIONS: None. ESTIMATED BLOOD LOSS: Minimal. RETAINED TUBES AND DRAINS: A 16-Sinhala John catheter, which had been replaced at the end of the pr ocedure. SPECIMENS: None. DISPOSITION: The patient will be admitted back to the Hospitalist Service for postop recovery. Dr. Feng has been consulted as well for possible esophageal cancer. Management of his definitive sto ne disease will be deferred until further discussion can be had with the son regarding long-term pro gnosis and care plan.
[2016-12-16] MEDS ORDERED: traMADol HCl 50 MG TAB PO PRN (17:40)
[2016-12-16] MEDS ORDERED: HYDROcodone/Acetaminophen 5/325 mg Tablet PO PRN (17:41)
[2016-12-16] MEDS ORDERED: Sodium Chloride 0.9% 500 ML IV SCH (17:45)
[2016-12-17 00:16] LABS: Anion Gap 14 mmol/L (10-20); BUN (Urea Nitrogen) 42 mg/dL (8.4-25.7); Calc. Creatinine Clearance 18 mL/min (70-130); Calcium 6.5 mg/dL (7.8-10.44); Carbon Dioxide 15 mmol/L (23-31); Chloride 115 mmol/L (98-107); Estimated GFR-MDRD 20
--- NOTE | 2016-12-17 00:19 | ULT ---
ULTRASOUND RETROPERITONEUM COMPLETE: (RENAL) DATE: 12/16/2016 TIME: 11:01 p.m. HISTORY: A 70-year-old male with very low urine output. FINDINGS: The upper portion of a nephroureteral stent is visualized in the right renal collecting system. The re is a tiny, 1 x 0.5 parenchymal cyst in the right renal mid pole. No hydronephrosis of the right k idney. The right kidney measures 11.5 x 6 x 5 cm. The left kidney is 7 x 3.5 x 4 cm. No left-sided hydronephrosis. The bilateral renal parenchymal echogenicity is diffusely, mildly heterogeneously increased, suggest vilma of medical renal disease. There is a John catheter within an empty urinary bladder. IMPRESSION: 1. Right ureteral stent. 2. Very small left kidney. 3. No hydronephrosis. 4. Tiny right renal cyst. 5. Findings suggestive of medical renal disease. KATERIN Robb POS: [facility]
--- NOTE | 2016-12-17 00:49 | PDOC.EVN ---
Event Note - Event Note Event Note: Pt seen re; elevated troponin. Minimal urine output, per nursing staff. Pt unable to verbalize any complaints. VSS. S1, S2, lungs CTA. Abdo soft, NT, BS +. Jonh bag is empty. A/P: 1. Elevated troponin: Acute AL vs. sepsis vs denad ischemia vs. PE (h/o solid malignancy). Start heparin drip, aspirin, transfer to tele floor, check 2D echo. Check VQ scan.
[2016-12-17 01:58] LABS: PTT 42.3 SEC (22.9-36.1); Prothrombin Time 22.5 SEC (12.0-14.7)
[2016-12-17 02:12] LABS: Hematocrit 26.8 % (42.0-52.0)
[2016-12-17] MEDS: Heparin 25,000 units/D5W 500 ML IVPB SCH (02:24)
[2016-12-17] MEDS: Heparin 10,000 UNITS/ 10 ML VIAL SLOW IVP SCH ×2 (02:27→22:29)
[2016-12-17 02:31] LABS: Troponin I 2.903 ng/mL (< 0.028)
[2016-12-17 02:59] VITALS: BMI 25.2
[2016-12-17] MEDS: Meropenem 500 MG in Sodium Chloride 0.9% 100 ML IVPB SCH ×3 (06:05→22:20)
[2016-12-17] MEDS: Dextrose 5 % And 0.9 % NaCl 1,000 ML IV SCH ×2 (06:05→09:27)
[2016-12-17 08:04] LABS: Troponin I 3.221 ng/mL (< 0.028)
[2016-12-17 08:40] LABS: PTT 161.2 SEC (22.9-36.1)
[2016-12-17] MEDS: Tamsulosin HCl 0.4 MG CAP PO SCH (09:24)
[2016-12-17] MEDS: Multivitamin W/ Minerals 1 TAB PO SCH (09:25)
[2016-12-17] MEDS: Ferrous Sulfate 325 MG TAB PO SCH (09:25)
[2016-12-17] MEDS: Saccharomyces boulardii 250 MG CAP PO SCH (09:25)
[2016-12-17] MEDS: Aspirin 325 mg Enteric Coated Tablet PO SCH (09:27)
--- NOTE | 2016-12-17 09:27 | PDOC.PN ---
- Subjective Encounter Start Date: 12/17/16 Encounter Start Time: 09:24 -: non-verbal Subjective: No fevers this AM -: No n/v - Objective Resuscitation Status: Resuscitation Status DNR:Do Not Resuscitate MAR Reviewed: Yes Vital Signs & Weight: Vital Signs (12 hours) Temp Pulse Resp BP Pulse Ox 12/17/16 08:00 96.6 F L 70 18 108/55 L 97 12/17/16 04:00 96.6 F L 68 16 110/53 L 97 12/17/16 01:50 97.6 F 69 18 110/56 L 97 12/17/16 00:00 97.7 F 72 18 95/58 L 97 Weight Weight 142 lb 6.4 oz I&O: 12/16/16 12/17/16 12/18/16 06:59 06:59 06:59 Intake Total 1140 2762 Output Total 350 290 Balance 790 2472 Result Diagrams: 12/17/16 01:43 12/16/16 22:37 Additional Labs: Accuchecks 12/17/16 12/16/16 12/16/16 05:41 20:33 16:01 POC Glucose 144 H 103 83 12/16/16 12/16/16 12/16/16 11:30 10:24 09:31 POC Glucose 116 H 99 67 L Phys Exam - Physical Examination Constitutional: NAD HEENT: moist MMs, sclera anicteric Neck: no nodes, no JVD Respiratory: no wheezing, clear to auscultation bilateral Cardiovascular: no significant murmur, no rub Gastrointestinal: soft, non-tender, positive bowel sounds Deviation from normal: unable to assess Skin: normal turgor, cap refill <2 seconds Dx/Plan (1) DENISE (acute kidney injury) Code(s): N17.9 - ACUTE KIDNEY FAILURE, UNSPECIFIED Status: Acute (2) Hydronephrosis, right Code(s): N13.30 - UNSPECIFIED HYDRONEPHROSIS Status: Acute Comment: sec to ureteric calculus (3) Pyelonephritis Code(s): N12 - TUBULO-INTERSTITIAL NEPHRITIS, NOT SPCF ACUTE OR CHRONIC Status: Acute (4) multiple metastases in liver Status: Acute - Plan Proteus mirabilis Acute Pyelonephritis with Right Hydronephrosis (2/2 right ureteral stone) and DENISE with bacteremia/sepsis * appreciate urology input - s/p cystoscopy with right ureteral stent placement * Emperic Abx: Vanco and Meropenem * continue IVFs * check labs in AM NSTEMI vs. Demand Ischemia * cardiology consulted * continue cardioprudent meds * ECHO: pending * VQ scan: pending Multiple liver mets * appreciate GI consult * EGD/bx Poor prognosis * Palliative care consulted Dispo: continue on Tele.
--- NOTE | 2016-12-17 12:32 | NM ---
VQ SCAN: Date: 12/17/16 COMPARISON: Chest x-ray dated 12/15/16. HISTORY: Shortness of breath. TECHNIQUE: A VQ scan was performed. Ventilation images were performed using 18 mCi Xenon-133. Perfusion images were performed using 6.2 mCi technetium-99m MAA. FINDINGS: Ventilation: Breath-hold, equilibrium, and washout phases are normal. No ventilatory defects are seen. No air tra pping is seen. Perfusion: No small, medium, or large perfusion defects are seen. IMPRESSION: Normal VQ scan. POS: [facility]
--- NOTE | 2016-12-17 12:34 | RAD ---
SINGLE VIEW OF CHEST: Date: 12/17/16 COMPARISON: 12/15/16. HISTORY: Shortness of breath. Correlate with VQ scan. FINDINGS: Single view of the chest shows an enlarged cardiomediastinal silhouette with atherosclerotic calcifi cations in the aorta. The patient is status post sternotomy. There is no evidence of consolidation, mass, or pleural effusion. IMPRESSION: No evidence of acute cardiopulmonary disease. POS: [facility]
--- NOTE | 2016-12-17 13:57 | PRG ---
DATE OF SERVICE: 12/17/2016 SUBJECTIVE: The patient states he is not having any pain today, really does not speak much. Contin ues to have somewhat withdrawn affect and no verbalization of anything. Will maintain some eye cont act otherwise. Yesterday, patient had reported low urine output. He was given a gentle 500 mL bolu s, but did not have any response to increased urine output. I did order a renal ultrasound and basi c metabolic panel which demonstrated that he had worsening of his acute kidney injury with elevation in his creatinine up to 3.03 as well as an ultrasound demonstrating a decompressed bladder with ure teral stent in place without any hydronephrosis on the right side. As such, the patient likely is n ot obstructed, but is actually not making urine secondary to another event. I recommended that they contacted the Hospitalist Team emergently for cardiac workup to ensure the patient does not have an ID, PE or some other cardiopulmonary issue. That workup is currently pending and the hospitalists have already seen the patient and have ordered the appropriate medications, imaging tests, labs, and have consulted Cardiology. OBJECTIVE: VITAL SIGNS: Temperature 96.6, pulse 70, respirations 18, blood pressure 108/55, saturation 97% on room air. The patient had 2762 mL in and 290 mL out per John catheter. GENERAL: No apparent distress, resting in bed, again does not answer questions or really follow any significant commands. CHEST: No increased work of breathing, clear anteriorly. CARDIOVASCULAR: Regular rate. Normal S1 and S2. No obvious murmurs. ABDOMEN: Soft, nontender, nondistended, positive bowel sounds. SKIN: Warm, dry, poor turgor. LABORATORY DATA: On laboratory evaluation, a full set of labs are in the [facility] system, which I h ave reviewed. Of note, the patient's creatinine is now elevated at 3.03 with BUN of 42. White bloo d cell count has not been checked today. The patient's hemoglobin is stable at 8.6. Blood cultures demonstrate Proteus mirabilis sensitive to everything except leaving levofloxacin and Bactrim. Peter al ultrasound done yesterday demonstrates atrophic left kidney with a right kidney without hydroneph rosis with a small renal cyst and ureteral stent in place. Bladder is decompressed with John brandin ter balloon in place. Troponins are elevated with an increasing original troponin drawn at 10:[address] time showing a troponin of 2.4. Currently, now at 3.22 as of 09/16/2016 this morning. ASSESSMENT AND PLAN: A 71-year-old white male with solitary functioning right kidney with ureteral stone and urinary tract infection with acute kidney injury, status post placement of ureteral stent with now decompression of his urinary tract. However, the patient has had worsening renal function and now has suffered either demand ischemia versus an acute ID. Cardiology has already been contact ed and the patient is on the appropriate medications. A V/Q scan has been performed, but has not ye t been read, I will leave the cardiac management and medical workup of this patient to the medical a nd Cardiology teams. From a urologic standpoint, the patient is completely decompressed and does no t have any current evidence of obstruction. Overall, this patient has a very poor prognosis given h is multiorgan dysfunction and his history of liver metastases, likely secondary to presumed esophage al cancer which has not yet been diagnosed. Palliative care may be an appropriate direction for thi s patient to go; however, that final decision will be left up to the family members and the other me mbers of the medical team. From my standpoint, I will continue to monitor, but there is no active i ntervention from my standpoint at this time. SUMMARY OF RECOMMENDATIONS: 1. We will continue to monitor. No further Urology treatment is necessary at this time. 2. Continue appropriate medical care given by the [facility], Cardiology and GI teams. 3. Would strongly consider palliative care/hospice in this situation as even though the patient rec overs from this particular episode; it is not likely that he will do well if he has this metastatic esophageal cancer.
[2016-12-17 14:47] LABS: PTT 62.6 SEC (22.9-36.1)
[2016-12-17 15:03] LABS: Vancomycin, Trough 12.6 ug/mL
[2016-12-17] MEDS: Vancomycin HCl 500 MG in Sodium Chloride 0.9% 100 ML IVPB SCH ×2 (15:13→15:25)
[2016-12-17] MEDS: Vancomycin HCl 750 MG in Sodium Chloride 0.9% 250 ML 250 ML IVPB SCH (15:49)
--- NOTE | 2016-12-17 15:58 | CON ---
DATE OF CONSULTATION: 12/17/2016 REASON FOR CONSULTATION: Elevated troponin. HISTORY OF PRESENT ILLNESS: Mr. Lagunas is a 71-year-old gentleman who is a patient of Dr. Tyler damon. He recently presented on 12/15/2016 with sepsis-like symptoms including abdominal pain and fe saundra. This morning, Mr. Lagunas did continue to complain of right upper quadrant pain yesterday. He underwent troponin that was elevated. He was then transferred to telemetry monitoring on heparin. During my interview, he is not having any complaints. He does have advanced dementia, so history ma y be difficult. He did undergo a V/Q scan that was negative. PAST MEDICAL HISTORY: Advanced dementia, hypertension, CAD, hyperlipidemia, osteoarthritis, BPH, ac id reflux, chronic kidney disease, UTI. PAST SURGICAL HISTORY: Bypass surgery, stent placement, carotid endarterectomy. SOCIAL HISTORY: Currently . No current tobacco or alcohol use. ALLERGIES: None. HOME MEDICATIONS: Include Aricept, clonidine, aspirin, hydralazine, Namenda, Flomax, multivitamin, Zoloft. REVIEW OF SYSTEMS: Ten point review of systems reviewed and as above, but difficult due to underlyi ng dementia. PHYSICAL EXAMINATION: GENERAL: He is not oriented to time, person, and place. VITAL SIGNS: Blood pressure 111/56, pulse 75, temperature 97.7. NEUROLOGIC: The patient is alert and oriented times 3 with no focal neurologic deficits. HEENT: Sclerae without icterus. Mouth has moist mucous membranes with normal pallor. NECK: No JVD. Carotid upstroke brisk. No bruits bilaterally. LUNGS: Clear to auscultation with unlabored respirations. BACK: No scoliosis or kyphosis. CARDIAC: Regular rate and rhythm with normal S1 and S2. No S3 or S4 noted. No significant rubs, m urmurs, thrills, or gallops noted throughout the precordium. PMI is not displaced. There is no par asternal heave. ABDOMEN: Soft, nontender, nondistended. No peritoneal signs present. No hepatosplenomegaly. No a bnormal striae. EXTREMITIES: 2+ femoral and 2+ dorsalis pedis pulses. No cyanosis, clubbing, or edema. SKIN: No gross abnormalities. PERTINENT LABORATORY DATA: Hemoglobin 8.6, creatinine 3.03. Peak troponin of 3.22. IMPRESSION: 1. Elevated troponin. 2. Sepsis. 3. Chronic kidney disease. 4. Advanced dementia. RECOMMENDATIONS: Patient did not appear to be in acute distress. His elevated troponin is likely r elated to demand ischemia. Given his comorbidities, would recommend continued conservative therapy. He is currently on heparin and would continue per Cardiovascular protocol. Would also continue as pirin. We will add low dose beta maria de jesus therapy given symptoms will hold off on nitroglycerin. Ot herwise, further recommendations per Dr. Tyler Cespedes in a.m.
[2016-12-17] MEDS: Sodium Bicarbonate 150 MEQ in Dextrose 5% in Water 1,000 ML IV SCH ×2 (17:26)
--- NOTE | 2016-12-17 17:32 | CON ---
DATE OF CONSULTATION: 12/17/2016 REASON FOR CONSULTATION: Abnormal CAT scan with liver masses concerning for metastatic disease and thickened distal esophagus. History comes from reviewing the chart and talk with his caretakers. I found out a little bit from the patient, but he has some Parkinson's and Alzheimer's reportedly and is not real conversant. He is getting ready to have VQ-scan. He denies any pain at this time. When I asked, he does note he h as had problems swallowing for some time, but he cannot quantify that, he cannot quantify weight los s either. Presently, he is in no distress. Radiology tells me that when they were moving him, he s tated his feet were hurting. HOSPITAL COURSE: The patient was admitted to the emergency room on the with abnormal liver enz ymes and was diagnosed with possible cholangitis or cholecystitis. He is found actually to be septi c from right pyelonephritis with stone impaction and went for an emergent ureteral stent. He appare ntly has improved from that standpoint. I was then consulted with regard to the multiple masses not ed in his CT in his liver and also the thickening in the distal esophagus, and they were concerned a bout a primary esophageal cancer. It is really difficult to obtain much history from the patient as noted above. There is no family at the bedside presently. There are plans to perform endoscopy to day; however, overnight, he was transferred to telemetry. He had elevated troponins, decreased urin e output and Cardiology consult has been obtained and he is having a VQ scan presently, therefore, t he endoscopy was canceled. REVIEW OF SYSTEMS: Unable to be obtained. PAST MEDICAL HISTORY: Alzheimer's dementia, hypertension, coronary artery disease, type 2 diabetes, dyslipidemia, peripheral vascular disease, osteoarthritis, carotid stenosis, prostatic enlargement, history of reflux, chronic kidney disease stage 3, disease; recurrent urinary tract infection s. PAST SURGICAL HISTORY: Cardiac catheterization and stent placement, CABG, carotid endarterectomy. He had an ureteral stent just recently; carotid endarterectomy in 2010; CABG in 2009; carotid endart erectomy in the right in 2014, February. ALLERGIES: None known. SOCIAL HISTORY: The patient lives in [facility] in [place]. FAMILY HISTORY: As per HPI. MEDICATIONS: In the shelter include; Aricept, aspirin, Claritin, clonidine patch, iron b.i.d., Flomax, hydralazine, multivitamin, Namenda, Zoloft, and p.r.n. magnesium, and Imodium. MEDICATIONS HERE: Tylenol, [place], Maalox, DuoNeb, Nitro-Dur, Ecotrin, D5 normal saline at 125 an ho ur, iron b.i.d., hydrocodone p.r.n., subcutaneous heparin, nebs, codeine, mag oxide, meropenem, p.r. n. nitroglycerin, Zofran, Zosyn previously but this has been discontinued, probiotic with saccharomy huber boulardii, vancomycin IV, hydralazine p.r.n. PHYSICAL EXAMINATION: GENERAL: Patient is on the table, going to get a VQ scan, he is in no distress. He is very thin wi th temporal wasting. VITAL SIGNS: Temperature is 96.6, pulse 70, blood pressure 108/55. NECK: The supraclavicular or infraclavicular adenopathy are palpated. LUNGS: Clear. HEART: Regular rate and rhythm without clicks or murmurs. ABDOMEN: Soft, nontender. LABORATORY AND X-RAY FINDINGS: White count 17,000; hemoglobin 8.6, stable; platelet count is 127,00 0; 74 segs; 2% lymphs; 15% bands. INR is 1.9. Sodium 139, potassium 4.7, bicarbonate is 15, chlori de 115, anion gap is 10, BUN is 42 and creatinine 3.3, this increased yesterday. CK-MB was 21, 24, and 33. BNP was 2190; troponin was 2.4, 2.9 and 3.2. PTH 268. On admission, bilirubin is 1.4, AST and ALT were 672 and 403, alkaline phosphatase 228, albumin was 1.9. A CAT scan showed masses in t he liver, diffuse and obstructive uropathy with a stone worse thickening of the distal esophagus. ASSESSMENT: 1. Patient admitted with urosepsis from renal obstruction, which resolved. He continues on antibio tics. 2. Now, the patient is being evaluated for apparently some change in clinical status with a VQ-scan and elevated troponins. 3. With regard to his liver mass on CT, this is very concerning for metastatic disease or primary l iver malignancy. With the thickening in the esophagus, a primary esophageal malignancy would be a c oncern. RECOMMENDATIONS: I agree it would be reasonable to perform an EGD in this patient, but this will sullivan ve to wait until he is clinically stable. If this is not feasible for him to undergo sedation, a di agnosis of his disease can be made with unsedated liver biopsy by Interventional Radiology. We will continue to follow along with you.
--- NOTE | 2016-12-17 20:53 | CON ---
DATE OF CONSULTATION: 12/17/2016 CONSULTING PHYSICIAN: Avani Mensah MD REQUESTING PHYSICIAN: Adolph Swenson MD REASON FOR CONSULTATION: Worsening renal failure. IMPRESSION: 1. Acute on chronic kidney disease. This is likely cytokine-mediated in the context of current inf ection. 2. Chronic kidney disease with atrophic left kidney. 3. Metabolic acidosis related to problem #1 above. 4. History of urinary tract infection in a patient with ureteral stent. PLAN: 1. Broad-spectrum antibiotics especially in this patient with a stent. 2. Renally dose all medications and avoid potentially nephrotoxic agents. 3. We will change the current IV fluid with a bicarbonate based solution. 4. Further management will be dependent on the clinical course. HISTORY OF PRESENT ILLNESS: History from this patient who is a very poor historian, he is 71-year-o ld gentleman sent in from a [facility] with abdominal pain and diagnosed with urinary tract infect ion; however, clinical evaluation did reveal worsening renal failure as well as worsening metabolic acidosis. As a result of these findings, the decision was taken to involve renal in the management of this case. The patient could not offer much of any history to me. PAST MEDICAL HISTORY: As per medical record, he is significant for Alzheimer's dementia, hypertensi on, coronary artery disease, type 2 diabetes, dyslipidemia, peripheral vascular disease, osteoarthri tis, Buerger disease, chronic kidney disease stage 3, recurrent urinary tract infection, which could have contributed to the atrophy of the left kidney. SOCIAL HISTORY: The patient is a [facility] resident. No alcohol, no illicit drug use. REVIEW OF SYSTEMS: Highly limited in this patient who is a very poor historian. ALLERGIES: No known drug allergies. FAMILY HISTORY: Significant for heart disease. MEDICATIONS: Medications have been reviewed and as documented on [email or web address]. PHYSICAL EXAMINATION: GENERAL: The patient was found to be malnourished looking with the following vital signs. VITAL SIGNS: Afebrile with temperature 97.6, pulse 69, respiratory rate 18, O2 sat 97% with a blood pressure 110/56. HEENT: Remarkable for dry oral mucosa. NECK: Supple. CARDIOVASCULAR SYSTEM: First and second heart sounds were heard. RESPIRATORY SYSTEM: Clear to auscultation. DIGESTIVE SYSTEM: Revealed a benign abdomen. EXTREMITIES: No peripheral edema. SKIN: No new gross rash rather dry skin. LYMPHATICS: No peripheral lymphadenopathy. SUMMARY: A 71-year-old gentleman who presented here with abdominal pain in the context of possible urinary tract infection, who is now experiencing deterioration in his renal function. Thank you for this consultation. We will follow with you.
[2016-12-17 21:27] LABS: PTT 56.7 SEC (22.9-36.1); Prothrombin Time 17.6 SEC (12.0-14.7)
[2016-12-17] MEDS: Metoprolol Tartrate 25 MG TAB PO SCH ×2 (22:16→22:37)
[2016-12-18] MEDS: Sodium Bicarbonate 150 MEQ in Dextrose 5% in Water 1,000 ML IV SCH ×6 (03:27→23:32)
[2016-12-18] MEDS: Meropenem 500 MG in Sodium Chloride 0.9% 100 ML IVPB SCH ×3 (05:28→23:00)
[2016-12-18] MEDS: Heparin 25,000 units/D5W 500 ML IVPB SCH ×2 (05:35→15:30)
[2016-12-18 06:26] LABS: Anion Gap 12 mmol/L (10-20); BUN (Urea Nitrogen) 44 mg/dL (8.4-25.7); BUN/Creatinine Ratio 15.17; Calc. Creatinine Clearance 22 mL/min (70-130); Calcium 6.4 mg/dL (7.8-10.44); Carbon Dioxide 20 mmol/L (23-31); Chloride 113 mmol/L (98-107); Estimated GFR-MDRD 21; Phosphorus 2.8 mg/dL (2.3-4.7)
[2016-12-18] MEDS: Heparin 10,000 UNITS/ 10 ML VIAL SLOW IVP SCH ×2 (06:52→15:21)
--- NOTE | 2016-12-18 08:28 | PDOC.PN ---
- Subjective Encounter Start Date: 12/18/16 Encounter Start Time: 08:26 Subjective: Pain controlled -: No agitation -: No fevers overnight - Objective Resuscitation Status: Resuscitation Status DNR:Do Not Resuscitate MAR Reviewed: Yes Vital Signs & Weight: Vital Signs (12 hours) Temp Pulse Resp BP Pulse Ox 12/18/16 03:00 98.5 F 81 20 134/58 L 12/18/16 00:15 98.4 F 87 20 116/64 97 Weight Weight 147 lb 14.4 oz I&O: 12/17/16 12/18/16 12/19/16 06:59 06:59 06:59 Intake Total 2762 3460 Output Total 290 550 Balance 2472 2910 Result Diagrams: 12/17/16 01:43 12/18/16 05:32 Additional Labs: Accuchecks 12/17/16 12/17/16 12/17/16 20:05 17:20 12:04 POC Glucose 154 H 136 H 142 H Phys Exam - Physical Examination Constitutional: NAD HEENT: PERRLA, moist MMs Neck: no nodes, no JVD Respiratory: no wheezing, no rales Cardiovascular: RRR, no significant murmur Gastrointestinal: soft, non-tender, positive bowel sounds Psychiatric: normal affect Skin: no rash, normal turgor Dx/Plan (1) DENISE (acute kidney injury) Code(s): N17.9 - ACUTE KIDNEY FAILURE, UNSPECIFIED Status: Acute (2) Hydronephrosis, right Code(s): N13.30 - UNSPECIFIED HYDRONEPHROSIS Status: Acute Comment: sec to ureteric calculus (3) Pyelonephritis Code(s): N12 - TUBULO-INTERSTITIAL NEPHRITIS, NOT SPCF ACUTE OR CHRONIC Status: Acute (4) multiple metastases in liver Status: Acute - Plan Proteus mirabilis (2 out of 2 blood cxs) Acute Pyelonephritis with Right Hydronephrosis (2/2 right ureteral stone) and DENISE with bacteremia/sepsis * appreciate urology input - s/p cystoscopy with right ureteral stent placement * appreciate nephrology input * Emperic Abx: Vanco and Meropenem * continue IVFs * check labs in AM NSTEMI vs. Demand Ischemia * cardiology consulted - conservative management * continue cardioprudent meds * ECHO: EF 50-55%, Gr II Diastolic dysfunction * VQ scan: normal Multiple liver mets with Esophageal Cancer * appreciate GI consult - EGD when stable * palliative care consulted Poor prognosis * Palliative care consulted Dispo: continue on Tele.
--- NOTE | 2016-12-18 09:12 | PRG ---
DATE OF SERVICE: 12/18/2016 SUBJECTIVE: The patient was seen and examined. PHYSICAL EXAMINATION: VITAL SIGNS: Afebrile with temperature 98.5, pulse 81, respiratory rate 20, blood pressure 134/58. HEENT: Unremarkable with moist oral mucosa. Neck is supple. No conjunctival injection or icterus. CARDIOVASCULAR: First and second heart sounds were heard. RESPIRATORY: Clear to auscultation. DIGESTIVE: Revealed a benign abdomen with positive bowel sounds. EXTREMITIES: No peripheral edema. SKIN: No new gross rash. LYMPHATICS: No peripheral lymphadenopathy. LABORATORY INVESTIGATIONS: Showed a hemoglobin of 8.6. Chemistry showed creatinine down to 2.9, bi carbonate of 20. Albumin 1.6. IMPRESSION: 1. Acute on chronic kidney disease which seems to be improving. 2. Metabolic acidosis, improving. 3. Sepsis in the context of urinary tract infection with Proteus. PLAN: 1. Antibiotic treatment as per sensitivity. 2. Continue current IV fluid and likely to be discontinued within the next 24 hours. 3. Further management to be dependent on the clinical course.
--- NOTE | 2016-12-18 11:01 | PRG ---
DATE OF SERVICE: 12/18/2016 SUBJECTIVE: Mr. Lagunas is without complaints today. He does note that he has had some issues with swallowing in the past several months, but really cannot give many details of the specifics. VITAL SIGNS: Temperature is 98, pulse 81, blood pressure 134/58. ABDOMEN: Soft, nontender. He has got muscle wasting, temporal area is very thin. He has got a very flat affect. Echocardiogram with ejection of 50-55%. Pulmonary perfusion study yesterday showed a normal VQ scan . LABORATORY STUDIES: White count 17,000 on the , has not been repeated. Hemoglobin was 8.6 yest erday, not repeated today. Sodium 141, potassium 3.8, chloride 113, bicarbonate 20, BUN and creatin ine are 44 and 2.9. ASSESSMENT: 1. Urosepsis. Renal stent in place for obstructive uropathy, renal sepsis on admission. 2. Multiple hyperdense lesions in the liver on CAT scan with elevated alkaline phosphatase over 100 0 consistent with infiltrative process. This is likely metastatic malignancy. 3. Thickening in the distal esophagus worsening on this CAT scan and on previous CAT scans with bradley e dysphagia, possibility of esophageal malignancy has to be considered as well. 4. Elevated troponins 2 nights ago with hypotension, he was transferred to IMU. He continues on a heparin drip, meropenem, saccharomyces boulardii. RECOMMENDATIONS: 1. Consider either a liver biopsy or upper endoscopy and a diagnosis once he is off his heparin dri p. 2. Would add a PPI for ulcer prophylaxis at this time in light of anticoagulation. 3. If Cardiology does not feel he is a candidate for endoscopy or biopsy may have to consider palli ative services.
[2016-12-18] MEDS: Aspirin 325 mg Enteric Coated Tablet PO SCH ×2 (11:19→11:32)
[2016-12-18] MEDS: Saccharomyces boulardii 250 MG CAP PO SCH ×2 (11:20→11:32)
[2016-12-18] MEDS: Ferrous Sulfate 325 MG TAB PO SCH ×2 (11:20→11:32)
[2016-12-18] MEDS: Tamsulosin HCl 0.4 MG CAP PO SCH ×2 (11:20→11:32)
[2016-12-18] MEDS: Metoprolol Tartrate 25 MG TAB PO SCH ×3 (11:20→23:00)
[2016-12-18] MEDS: Multivitamin W/ Minerals 1 TAB PO SCH ×2 (11:20→11:32)
[2016-12-18] MEDS: Vancomycin HCl 750 MG in Sodium Chloride 0.9% 250 ML 250 ML IVPB SCH (15:55)
[2016-12-18] MEDS: Atorvastatin Calcium 20 MG TAB PO SCH (23:00)
[2016-12-19] MEDS: Sodium Bicarbonate 150 MEQ in Dextrose 5% in Water 1,000 ML IV SCH ×6 (04:50→21:50)
[2016-12-19 05:35] LABS: Hematocrit 26.3 % (42.0-52.0)
[2016-12-19] MEDS: Meropenem 500 MG in Sodium Chloride 0.9% 100 ML IVPB SCH ×3 (06:19→21:50)
--- NOTE | 2016-12-19 08:15 | PDOC.PN ---
- Subjective Encounter Start Date: 12/19/16 Encounter Start Time: 08:13 Subjective: Confused but more alert today -: no n/v -: No agitation - Objective Resuscitation Status: Resuscitation Status DNR:Do Not Resuscitate Vital Signs & Weight: Vital Signs (12 hours) Temp Pulse Resp BP Pulse Ox 12/19/16 03:46 98.4 F 86 18 146/70 H 95 Weight Weight 149 lb 1.6 oz I&O: 12/18/16 12/19/16 12/20/16 06:59 06:59 06:59 Intake Total 3460 3338 Output Total 550 1110 Balance 2910 2228 Result Diagrams: 12/19/16 05:13 12/18/16 05:32 Additional Labs: Accuchecks 12/18/16 12/18/16 12/18/16 17:17 11:59 05:18 POC Glucose 126 H 142 H 155 H Phys Exam - Physical Examination Constitutional: NAD HEENT: moist MMs, sclera anicteric Neck: no nodes, no JVD Respiratory: no wheezing, no rales Cardiovascular: RRR, no significant murmur Gastrointestinal: soft, non-tender, positive bowel sounds Neurological: non-focal Psychiatric: normal affect, A&O x 3 Skin: no rash, normal turgor Dx/Plan (1) DENISE (acute kidney injury) Code(s): N17.9 - ACUTE KIDNEY FAILURE, UNSPECIFIED Status: Acute (2) Hydronephrosis, right Code(s): N13.30 - UNSPECIFIED HYDRONEPHROSIS Status: Acute Comment: sec to ureteric calculus (3) Pyelonephritis Code(s): N12 - TUBULO-INTERSTITIAL NEPHRITIS, NOT SPCF ACUTE OR CHRONIC Status: Acute (4) multiple metastases in liver Status: Acute - Plan Proteus mirabilis (2 out of 2 blood cxs) Acute Pyelonephritis with Right Hydronephrosis (2/2 right ureteral stone) and DENISE with bacteremia/sepsis * appreciate urology input - s/p cystoscopy with right ureteral stent placement * appreciate nephrology input * Emperic Abx: Vanco and Meropenem * continue IVFs * Blood cultures (repeated on 12-12-16): pending * check labs in AM NSTEMI vs. Demand Ischemia * cardiology consulted - conservative management * continue cardioprudent meds * ECHO: EF 50-55%, Gr II Diastolic dysfunction * VQ scan: normal Multiple liver mets with Esophageal Cancer * appreciate GI consult - EGD when stable * palliative care consulted Poor prognosis * Palliative care consulted - [facility] Dispo: Consult CM to assist with [facility], per family request.
[2016-12-19] MEDS: Pantoprazole 40 MG VIAL IVP SCH (10:38)
[2016-12-19] MEDS: Metoprolol Tartrate 25 MG TAB PO SCH ×2 (10:38→21:48)
[2016-12-19] MEDS: Saccharomyces boulardii 250 MG CAP PO SCH (10:39)
[2016-12-19] MEDS: Aspirin 81 mg Enteric Coated Tablet PO SCH (10:39)
[2016-12-19] MEDS: Multivitamin W/ Minerals 1 TAB PO SCH (10:39)
[2016-12-19] MEDS: Ferrous Sulfate 325 MG TAB PO SCH (10:39)
[2016-12-19] MEDS: Tamsulosin HCl 0.4 MG CAP PO SCH (10:40)
[2016-12-19] MEDS: Aspirin 325 mg Enteric Coated Tablet PO SCH (10:53)
--- NOTE | 2016-12-19 14:19 | PRG ---
DATE OF SERVICE: 12/19/2016 The patient was seen and examined. PHYSICAL EXAMINATION: VITAL SIGNS: Afebrile with temperature 98.5, pulse 81, respiratory rate 18, O2 sat 94%, blood press ure 141/75. HEENT: Unremarkable with moist oral mucosa. Neck is supple. No conjunctival injection or icterus. CARDIOVASCULAR: First and second heart sounds were heard. RESPIRATORY: Clear to auscultation. ABDOMEN: Digestive system revealed a benign abdomen. EXTREMITIES: No peripheral edema. LABORATORY INVESTIGATIONS: Hemoglobin of 8.4. Chemistry; none. IMPRESSION: 1. Acute on chronic kidney disease. 2. Metabolic acidosis. Bicarbonate supplementation. 3. Failure to thrive. PLAN: 1. The patient's chemistries needs to be reevaluated given the fact that this patient is getting bi carbonate infusion vis-?-vis the possibility of time to discontinue the bicarbonate drip. 2. Encourage the patient to increase p.o. intake. May decide to consider appetite stimulant like _ ____. 3. Further management to be dependent on the clinical course.
[2016-12-19 14:27] LABS: Vancomycin, Trough 19.8 ug/mL
[2016-12-19] MEDS: Vancomycin HCl 750 MG in Sodium Chloride 0.9% 250 ML 250 ML IVPB SCH (15:45)
--- NOTE | 2016-12-19 20:46 | PRG ---
DATE OF SERVICE: 12/19/2016 HISTORY OF PRESENT ILLNESS: Mr. Lagunas is without complaints. He is off the heparin drip. I have asked him about upper endoscopy with regard to the abnormal findings on the CAT scan. He is really not clear in his mentation and could not really answer the questions whether to proceed with the carson gnostic procedures, I am not sure he understands the issues of him. PHYSICAL EXAMINATION: VITAL SIGNS: Temperature is 98, pulse 81, blood pressure 141/75. ABDOMEN: Soft, nontender. LABORATORY STUDIES: Hemoglobin is 8.4 today. ASSESSMENT: 1. CT scan with possible esophageal mass and multiple lesions and they are which would most likely be metastatic disease; however, no definitive diagnosis of malignancy has been made. 2. Dementia. 3. Acute kidney injury. 4. Hydronephrosis with pyelonephritis. 5. Non-ST elevation myocardial infarction, demand ischemia. RECOMMENDATIONS: We can perform EGD at this time for diagnosis if desire. I have talked with the [facility] internists, who stated that he talked with the family and they wanted to just proc eed with hospice care back at [facility] and not to undergo invasive procedures. Multiple attempt s were made to contact the patient's family at the cell numbers listed, but I have got no response. In talking to the caseworkers, they note that Palliative Care has had a conversation with the famil y as well and those were their wishes. If I have mistaken my understanding, I would be more than sullivan ppy to reevaluate the patient with upper endoscopy. At this time, we will sign off and follow from a distance.
[2016-12-19] MEDS ORDERED: Enoxaparin Sodium 40 MG/0.4 ML SYRINGE SC SCH (21:00)
[2016-12-19] MEDS: Atorvastatin Calcium 20 MG TAB PO SCH (21:49)
[2016-12-20] MEDS: Meropenem 500 MG in Sodium Chloride 0.9% 100 ML IVPB SCH ×2 (04:44→14:52)
[2016-12-20] MEDS: Sodium Bicarbonate 150 MEQ in Dextrose 5% in Water 1,000 ML IV SCH ×4 (04:47→12:02)
--- NOTE | 2016-12-20 08:05 | PDOC.PN ---
- Subjective Encounter Start Date: 12/20/16 Encounter Start Time: 08:03 Subjective: No agitation -: No overnight issues - Objective Resuscitation Status: Resuscitation Status DNR:Do Not Resuscitate MAR Reviewed: Yes Vital Signs & Weight: Vital Signs (12 hours) Temp Pulse Resp BP Pulse Ox 12/20/16 04:00 99.1 F 93 20 156/65 H 92 L 12/20/16 00:00 98.2 F 84 18 136/70 Weight Weight 151 lb I&O: 12/19/16 12/20/16 12/21/16 06:59 06:59 06:59 Intake Total 3338 2423.5 Output Total 1110 500 Balance 2228 1923.5 Result Diagrams: 12/19/16 05:13 12/18/16 05:32 Additional Labs: Accuchecks 12/20/16 12/19/16 12/19/16 05:46 20:30 16:11 POC Glucose 175 H 175 H 140 H 12/19/16 11:16 POC Glucose 134 H Phys Exam - Physical Examination Constitutional: NAD HEENT: moist MMs, sclera anicteric Neck: no nodes, no JVD Respiratory: no wheezing, no rales, clear to auscultation bilateral Cardiovascular: RRR, no significant murmur Gastrointestinal: soft, non-tender, positive bowel sounds Deviation from normal: calm/no agitation Skin: normal turgor, cap refill <2 seconds Dx/Plan (1) DENISE (acute kidney injury) Code(s): N17.9 - ACUTE KIDNEY FAILURE, UNSPECIFIED Status: Acute (2) Hydronephrosis, right Code(s): N13.30 - UNSPECIFIED HYDRONEPHROSIS Status: Acute Comment: sec to ureteric calculus (3) Pyelonephritis Code(s): N12 - TUBULO-INTERSTITIAL NEPHRITIS, NOT SPCF ACUTE OR CHRONIC Status: Acute (4) multiple metastases in liver Status: Acute - Plan Proteus mirabilis (2 out of 2 blood cxs) Acute Pyelonephritis with Right Hydronephrosis (2/2 right ureteral stone) and DENISE with bacteremia/sepsis * appreciate urology input - s/p cystoscopy with right ureteral stent placement * appreciate nephrology input * Emperic Abx: Vanco and Meropenem * continue IVFs * Blood cultures (repeated on 12-12-16): NGTD NSTEMI vs. Demand Ischemia * cardiology consulted - conservative management * continue cardioprudent meds * ECHO: EF 50-55%, Gr II Diastolic dysfunction * VQ scan: normal Multiple liver mets with Esophageal Cancer * appreciate GI consult - spoke with GI - defer EGD given request for hospice status by family. * palliative care consulted Poor prognosis * Palliative care consulted - family [facility] Dispo: Consulted CM to assist with [facility]osp[facility] care [facility], per family request.
[2016-12-20 08:58] LABS: Anion Gap 8 mmol/L (10-20); BUN (Urea Nitrogen) 31 mg/dL (8.4-25.7); Calc. Creatinine Clearance 29 mL/min (70-130); Calcium 6.9 mg/dL (7.8-10.44); Carbon Dioxide 34 mmol/L (23-31); Chloride 102 mmol/L (98-107); Estimated GFR-MDRD 30
[2016-12-20] MEDS: Multivitamin W/ Minerals 1 TAB PO SCH (09:02)
[2016-12-20] MEDS: Saccharomyces boulardii 250 MG CAP PO SCH (09:02)
[2016-12-20] MEDS: Aspirin 81 mg Enteric Coated Tablet PO SCH (09:02)
[2016-12-20] MEDS: Tamsulosin HCl 0.4 MG CAP PO SCH (09:02)
[2016-12-20] MEDS: Metoprolol Tartrate 25 MG TAB PO SCH (09:02)
[2016-12-20] MEDS: Ferrous Sulfate 325 MG TAB PO SCH (09:03)
[2016-12-20] MEDS: Pantoprazole 40 MG VIAL IVP SCH (09:04)
[2016-12-20] MEDS: Vancomycin HCl 750 MG in Sodium Chloride 0.9% 250 ML 250 ML IVPB SCH (15:41)
[2016-12-20 16:15] VITALS: BP 151/65; TEMP 99.3
--- NOTE | 2016-12-20 17:23 | PRG ---
DATE OF SERVICE: 12/20/2016 SUBJECTIVE: The patient was seen and examined with no new complaint and noted with the following vi kvng signs. PHYSICAL EXAMINATION: VITAL SIGNS: Afebrile with temperature 98, pulse 82, respiratory rate 22, O2 sat 95% with blood pre ssure 140/93. HEENT: Unremarkable with moist oral mucosa. Neck is supple. No conjunctival injection or icterus. CARDIOVASCULAR: First and second heart sounds were heard. RESPIRATORY: Clear to auscultation. DIGESTIVE: Revealed a benign abdomen with positive bowel sounds. EXTREMITIES: No peripheral edema. SKIN: No new gross rash. LYMPHATICS: No peripheral lymphadenopathy. LABORATORY INVESTIGATIONS: Significant for potassium of 3.4, bicarbonate of 34, creatinine 2.19 wit h BUN of 31. IMPRESSION: 1. Acute on chronic kidney disease, which is seems to have improved. 2. Metabolic acidosis, improved, now in the alkalotic range. 3. Hypokalemia, partly in the context of acid base disorder. PLAN: 1. Discontinue current bicarbonate drip. 2. Renal supportive measures. 3. Further management to be dependent on the clinical course.
--- NOTE | 2016-12-20 21:08 | DIS ---
DATE OF ADMISSION: 12/15/2016 DATE OF DISCHARGE: 12/20/2016 PRIMARY DISCHARGE DIAGNOSES: 1. Proteus mirabilis acute pyelonephritis with right hydronephrosis secondary to ureteral stone and acute kidney injury with bacteremia in sepsis. 2. Demand ischemia. 3. Multiple liver metastases with esophageal cancer likely. HOSPITAL COURSE SUMMARY: This is a 71-year-old male, who was treated for Proteus mirabilis acute py elonephritis with right hydronephrosis secondary to ureteral stone and acute kidney injury with bact eremia in sepsis. Urology had consulted and performed a cystoscopy with a right ureteral stent plac [place]. Nephrology had also been consulted for the acute kidney injury. The patient has been on van comycin and meropenem and repeat blood cultures were sent on 12/12/2016 with no growth to date. Add itionally, the patient has been treated for demand ischemia with a Cardiology consult and an echocar diogram had revealed an ejection fraction of 50% to 55% with grade II diastolic dysfunction and a VQ scan was normal per Cardiology conservative management was offered. The patient also had multiple liver metastases with a suspicion of esophageal cancer. GI was consul agustin and an EGD was originally planned; however, the family decided to change care to hospital goals only and palliative care was assisting with this transition. The EGD was as deferred due to the fac t that it would not business management specialist. The patient has been accepted back to the [facility] at the [facility] for hospice care and will be dis charged there today. DISCHARGE PHYSICAL EXAMINATION, LABS AND IMAGING: Please refer to my progress note from earlier tod ay. DISCHARGE MEDICATIONS: Reviewed and reconciled. Please refer to chart for details. DISCHARGE PLAN/DISPOSITION: 1. Discharge to [facility] with hospice care. 2. We will continue home medications upon discharge and defer to hospice team for medical managemen t. 3. Diet: As tolerated. 4. Activity: As tolerated.
== END 2016-12-20 18:05 | disposition hospice, inpatient (51) | DRG 871 ==
LOC: ERS 11:13 → T4-A 14:46 → 2NO 12-17 01:50
PROVIDERS: ADMIT Internal Medicine; ATTEND Internal Medicine
PROC: 0T768DZ Dilation of Right Ureter with Intraluminal Device, Via Natural or Artificial Opening Endoscopic (ICD-10-PCS; principal; 2016-12-16)
DX: A41.59 Other Gram-negative sepsis (principal); G93.41 Metabolic encephalopathy; N17.9 Acute kidney failure, unspecified; E46 Unspecified protein-calorie malnutrition; I95.9 Hypotension, unspecified; C15.9 Malignant neoplasm of esophagus, unspecified; I24.8 Other forms of acute ischemic heart disease; C78.7 Secondary malignant neoplasm of liver and intrahepatic bile duct; R13.10 Dysphagia, unspecified; N10 Acute pyelonephritis; N13.6 Pyonephrosis; E11.22 Type 2 diabetes mellitus with diabetic chronic kidney disease; E11.51 Type 2 diabetes mellitus with diabetic peripheral angiopathy without gangrene; I12.9 Hypertensive chronic kidney disease with stage 1 through stage 4 chronic kidney disease, or unspecified chronic kidney disease; R65.20 Severe sepsis without septic shock; N18.3 Chronic kidney disease, stage 3 (moderate); G30.9 Alzheimer's disease, unspecified; F02.80 Dementia in other diseases classified elsewhere, unspecified severity, without behavioral disturbance, psychotic disturbance, mood disturbance, and anxiety; Z51.5 Encounter for palliative care; Z66 Do not resuscitate; R62.7 Adult failure to thrive; N40.0 Benign prostatic hyperplasia without lower urinary tract symptoms; E87.6 Hypokalemia; I25.10 Atherosclerotic heart disease of native coronary artery without angina pectoris; E78.5 Hyperlipidemia, unspecified; K21.9 Gastro-esophageal reflux disease without esophagitis; Z95.5 Presence of coronary angioplasty implant and graft; F32.9 Major depressive disorder, single episode, unspecified; F41.9 Anxiety disorder, unspecified; Z68.23 Body mass index [BMI] 23.0-23.9, adult
CPT/HCPCS: 36415; 36416; 51703; 71010; 74176; 74420; 76705; 76770; 78582; 80048; 80053; 80069; 80202; 81001; 82330; 82553; 82803; 83605; 83880; 83970; 84484; 85014; 85018; 85025; 85049; 85610; 85730; 87040; 87077; 87149; 87186; 93005; 93010; 93306; 96360; 96361; 96365; 96367; A4216; A9540; A9558; C1758; C1769; C9113; J1644; J1650; J2001; J2185; J2405; J2543; J2704; J3010; J3370; J7050; J7070